=== PATIENT | female | born 1960 | race Native Hawaiian/Other Pacific Islander ===

== ENCOUNTER 2019-12-08 09:50 | Outpatient (CLI) | payer OTHER ==
[~2019-12-08 09:50] MED LIST: ALPR0.2566 PO; CRESTOR20 MG PO; DULO60CA2 OR; GABA300C2 PO; JANUMET1 TA1 OR; LIDOPATCH TOP; LISI10TA11 PO; MELO-13 OR; NEXIUM40 M1 OR; SIMV40TA57; VICTOZA18 MG/3 ML SC; ZOLP10TA2 PO
== END 2019-12-08 22:15 | disposition home or self-care (01) ==
LOC: RAD 09:50
DX: M19.90 Unspecified osteoarthritis, unspecified site (principal); E11.9 Type 2 diabetes mellitus without complications; I10 Essential (primary) hypertension; E66.9 Obesity, unspecified; G62.9 Polyneuropathy, unspecified; H91.90 Unspecified hearing loss, unspecified ear; E78.00 Pure hypercholesterolemia, unspecified; G47.00 Insomnia, unspecified

== ENCOUNTER 2019-12-15 11:59 | Outpatient (CLI) | payer OTHER | END 2019-12-15 19:04 | disposition home or self-care (01) | LOC: RAD 11:59 | DX: M19.90 Unspecified osteoarthritis, unspecified site (principal); E11.9 Type 2 diabetes mellitus without complications; I10 Essential (primary) hypertension; E66.9 Obesity, unspecified; G62.9 Polyneuropathy, unspecified; H91.90 Unspecified hearing loss, unspecified ear; E78.00 Pure hypercholesterolemia, unspecified; G47.00 Insomnia, unspecified ==

== ENCOUNTER 2020-05-14 15:32 | Outpatient (CLI) | payer OTHER | END 2020-05-14 21:00 | disposition home or self-care (01) | LOC: RAD 15:32 | PROVIDERS: ATTEND Family Medicine | DX: M25.561 Pain in right knee (principal) ==

== ENCOUNTER 2020-07-03 11:54 | Emergency (ER) | payer OTHER ==
[~2020-07-03] VITALS: Ht 165.1 cm; Wt 113.4 kg
[2020-07-03 12:00] VITALS: TEMP 98
[2020-07-03 14:00] VITALS: BP 141/90
== END 2020-07-03 14:20 | disposition home or self-care (01) ==
LOC: ED 11:54
DX: S22.41XA Multiple fractures of ribs, right side, initial encounter for closed fracture (principal); V86.59XA Driver of other special all-terrain or other off-road motor vehicle injured in nontraffic accident, initial encounter; Y92.89 Other specified places as the place of occurrence of the external cause
CPT/HCPCS: 99283

== ENCOUNTER 2020-07-16 15:17 | Outpatient (CLI) | payer OTHER | END 2020-07-16 21:04 | disposition home or self-care (01) | LOC: RAD 15:17 | PROVIDERS: ATTEND Family Medicine | DX: R07.81 Pleurodynia (principal); Z87.81 Personal history of (healed) traumatic fracture; R10.9 Unspecified abdominal pain ==

== ENCOUNTER 2020-12-06 11:39 | Outpatient (CLI) | payer OTHER | END 2020-12-06 20:19 | disposition home or self-care (01) | LOC: MAMMO 11:39 | PROVIDERS: ATTEND Family Medicine | DX: Z12.31 Encounter for screening mammogram for malignant neoplasm of breast (principal); Z78.0 Asymptomatic menopausal state ==

== ENCOUNTER 2021-05-20 13:22 | Outpatient (CLI) | payer OTHER | END 2021-05-20 19:00 | disposition home or self-care (01) | LOC: RAD 13:22 | PROVIDERS: ATTEND Family Medicine | DX: S29.8XXA Other specified injuries of thorax, initial encounter (principal); R10.9 Unspecified abdominal pain; Y92.9 Unspecified place or not applicable ==

== ENCOUNTER 2021-07-15 15:30 | Observation (INO) | payer OTHER ==
[~2021-07-15] VITALS: Ht 165.1 cm; Wt 117.9 kg
[~2021-07-15 15:30] MED LIST changes: -ALPR0.2566 PO; +ALPR0.5T24 PO
[2021-07-15 17:34] LABS: PLATELET COUNT 343 K/uL (152-353)
[2021-07-15 17:44] LABS: POTASSIUM 4.3 mmol/L (3.6-5.2)
[2021-07-15] MEDS ORDERED: GABA300C2 PO (17:49)
[2021-07-15 18:04] VITALS: BP 142/49; TEMP 98.1; Ht 165.1 cm; Wt 117.9 kg
[2021-07-15] MEDS ORDERED: [UNRECOGNIZED DRUG - OTHER] PO (18:32)
[2021-07-15] MEDS ORDERED: OLMESARTAN MEDO40 MG PO (18:33)
[2021-07-15] MEDS ORDERED: LIPITOR40 MG PO (18:34)
[2021-07-15] MEDS ORDERED: HYDR25TA60 PO (18:35)
[2021-07-15] MEDS ORDERED: AMLODIPINE PO (18:37)
[2021-07-15] MEDS ORDERED: ALLO100T22 PO (18:38)
[2021-07-15] MEDS ORDERED: HYDROCODONE BIT1 TA2 PO (18:42)
[2021-07-15] MEDS ORDERED: INSU100I2 SC (18:43)
[2021-07-15] MEDS ORDERED: NOVOLOG100 UNIT/M SC (18:46)
[2021-07-15] MEDS ORDERED: OZEMPIC2 MG/1.5 M SC (18:48)
[2021-07-15 20:00] VITALS: BP 150/95; TEMP 98.4
[2021-07-16] VITALS: BP 114/78; BP 124/82; TEMP 97.1; TEMP 98.4
[2021-07-16 04:00] VITALS: BP 102/68; TEMP 97.9
[2021-07-16 08:00] VITALS: BP 121/75; TEMP 97.9
[2021-07-16 12:00] VITALS: BP 121/80; TEMP 97.4
[2021-07-16 13:23] LABS: PLATELET COUNT 283 K/uL (152-353)
[2021-07-16 13:38] LABS: POTASSIUM 4.3 mmol/L (3.6-5.2)
[2021-07-16 16:05] VITALS: BP 123/74; TEMP 98.5
[2021-07-16 19:50] VITALS: BP 142/91; TEMP 97
[2021-07-17] VITALS: BP 114/78; TEMP 97.1
[2021-07-17 04:00] VITALS: BP 121/82; TEMP 98
[2021-07-17 05:44] LABS: PLATELET COUNT 246 K/uL (152-353)
[2021-07-17 05:51] LABS: POTASSIUM 4.6 mmol/L (3.6-5.2)
[2021-07-17 08:00] VITALS: BP 132/76; TEMP 98.5
== END 2021-07-17 14:46 | disposition home health service (06) ==
LOC: MED/SURG 15:30
PROVIDERS: ADMIT Family Medicine; ATTEND Family Medicine
DX: E11.65 Type 2 diabetes mellitus with hyperglycemia (principal); L03.116 Cellulitis of left lower limb; N18.32 Chronic kidney disease, stage 3b; L03.115 Cellulitis of right lower limb; R10.9 Unspecified abdominal pain; R42 Dizziness and giddiness; F41.8 Other specified anxiety disorders; G47.09 Other insomnia; E66.8 Other obesity; K21.9 Gastro-esophageal reflux disease without esophagitis; E11.40 Type 2 diabetes mellitus with diabetic neuropathy, unspecified; E78.49 Other hyperlipidemia; M15.8 Other polyosteoarthritis; E11.22 Type 2 diabetes mellitus with diabetic chronic kidney disease; I12.9 Hypertensive chronic kidney disease with stage 1 through stage 4 chronic kidney disease, or unspecified chronic kidney disease; E11.621 Type 2 diabetes mellitus with foot ulcer
CPT/HCPCS: 36415; 36591; 80053; 81000; 82948; 83735; 84100; 84550; 85027; 87040; 87635; 96361; 96365; 96367; 96372; 96374; 96375; 99220; J1956; G0378; G0379; J0696; J1650; J1815; J3475; J3490; U0003

== ENCOUNTER 2021-12-05 11:46 | Outpatient (CLI) | payer OTHER ==
[~2021-12-05 11:46] MED LIST changes: +ALLO100T22 PO; +AMLODIPINE PO; +HYDR25TA60 PO; +HYDROCODONE BIT1 TA2 PO; +INSU100I2 SC; +LIPITOR40 MG PO; +NOVOLOG100 UNIT/M SC; +OLMESARTAN MEDO40 MG PO; +OZEMPIC2 MG/1.5 M SC; +[UNRECOGNIZED DRUG - OTHER] PO
== END 2021-12-05 22:08 | disposition home or self-care (01) ==
LOC: RAD 11:46
PROVIDERS: ATTEND Family Medicine
DX: M54.89 Other dorsalgia (principal); Z87.442 Personal history of urinary calculi; Z09 Encounter for follow-up examination after completed treatment for conditions other than malignant neoplasm

== ENCOUNTER 2022-04-22 12:40 | Emergency (ER) | payer OTHER ==
[~2022-04-22] VITALS: Ht 165.1 cm; Wt 109.8 kg
[2022-04-22 13:33] LABS: PLATELET COUNT 278 K/uL (152-353)
[2022-04-22 13:43] LABS: POTASSIUM 3.5 mmol/L (3.6-5.2)
[2022-04-22 15:22] VITALS: BP 172/94; TEMP 97.1
== END 2022-04-22 15:25 | disposition home or self-care (01) ==
LOC: ED 12:40
PROVIDERS: Emergency Medicine
DX: I10 Essential (primary) hypertension (principal); R51.9 Headache, unspecified
CPT/HCPCS: 80053; 81000; 84484; 85027; 93005; 99283

== ENCOUNTER 2022-06-23 12:53 | Outpatient (CLI) | payer OTHER | END 2022-06-23 20:43 | disposition home or self-care (01) | LOC: RAD 12:53 | PROVIDERS: ATTEND Orthopaedic Surgery | DX: M25.561 Pain in right knee (principal); M25.562 Pain in left knee ==